=== PATIENT | male | born 1985 | race Caucasian/White ===

== ENCOUNTER 2016-10-05 03:19 | Emergency (ER) | payer OTHER ==
[~2016-10-05] VITALS: Ht 180.3 cm; Wt 119.2 kg
[~2016-10-05 03:19] MED LIST: ACET325T96 PO; AMLO-114 PO; DIVA250T PO; DXY100 PO; LABE1TAB28 PO; OXYC1TAB3 PO
[2016-10-05 03:23] VITALS: TEMP 37.1; Ht 180.3 cm; Wt 119.2 kg
[2016-10-05 04:31] LABS: BASO % 0.3 %; BASO ABS # 0.02 K/uL (0-0.2); COMPLETE YES; EOS % 1.9 %; IG% 0.2 %; LYMPH % 40.2 %; LYMPH ABS # 2.54 K/uL (1.2-3.4); MEAN CORPUSCULAR HEMOGLOBIN 29.2 pg (25-34); MEAN PLATELET VOLUME 10.2 fL (7.4-10.4); MONO % 8.1 %; NEUT % 49.3 %; PLATELET COUNT 234 K/uL (130-400); RED BLOOD COUNT 4.65 M/uL (4.7-6.1); WHITE BLOOD COUNT 6.32 K/uL (4.8-10.8)
[2016-10-05 04:49] LABS: ALT/SGPT 37 U/L (12-78); AST/SGOT 24 U/L (15-37); BLOOD UREA NITROGEN 17 mg/dl (7-18); BUN/CREATININE RATIO 13.3 (10-20); CALCIUM 8.3 mg/dl (8.5-10.1); CARBON DIOXIDE 29 mmol/L (21-32); CHLORIDE 108 mmol/L (98-107); GLUCOSE 103 mg/dl (70-99); POTASSIUM 3.9 mmol/L (3.5-5.1); SODIUM 143 mmol/L (136-145)
[2016-10-05 04:51] LABS: ACETAMINOPHEN < 2 ug/ml (10-30)
[2016-10-05 05:00] LABS: ALB/GLOB RATIO 1.1 (0.9-2); ALKALINE PHOSPHATASE 68 U/L (45-117)
--- NOTE | 2016-10-05 07:57 | EMERGENCY ROOM VISIT NOTE ---
History Report prepared by Belle: Helen Gómez Under the Supervision of: Dr. Ashutosh Taylor M.D. First contact with patient: 03:30 Chief Complaint: MENTAL HEALTH EVALUATION Stated Complaint: REQUEST MH EVAL History of Present Illness The patient is a 31 year old male who presents to the Emergency Room for a mental health evaluation. The patient has a history of 6 suicide attempts by overdose. Recently, he began feeling stressed out, so his father called [facility] this morning so that the patient could be evaluated. The patient admits that he gets increasingly stressed out about clashes with his father. [facility] was unable to assess the patient at the time so his father called police. Police brought the patient to the hospital. The patient states that he gets chest pain a few times a day when he is very anxious. Currently, he is not suicidal or homicidal. He has been admitted for inpatient psychiatric treatment in the past, most recently this past March following a suicide attempt by drinking antifreeze. The patient states that his most recent suicide attempt was this past June. He was seen in the emergency room for vomiting and back pain afterwards but did not tell anyone that he had attempted suicide. He has not missed any of his prescribed medications recently. The patient follows up with [facility], most recently about 2 weeks ago. Pt denies LOC, headache, fevers, chills, diaphoresis, visual changes, neck pain, breathing difficulties, nausea, vomiting, abdominal pain, back pain, melena, hematochezia, urinary symptoms, numbness, weakness, lymphadenopathy, rash, or other complaints. 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 A total of ten systems were reviewed and were otherwise negative. Past Medical & Surgical Medical Problems: (1) Depression (2) Dilated aortic root (3) History of suicide attempt Family History Diabetes mellitus Kidney stones Social History Smoking Status: Current Some Day Smoker Alcohol Use: heavy Drug Use: none Housing Status: lives with family Current/Historical Medications Scheduled Amlodipine (Norvasc), 10 MG PO DAILY Labetalol (Normodyne), 2 TABS PO TID Scheduled PRN Acetaminophen Tab (Tylenol), 650 MG PO Q4 PRN for Pain Divalproex Sodium (Depakote Er), 750 MG PO BID PRN for bid Oxycodone Ir (Roxicodone Ir), 5 MG PO Q4H PRN for Severe Pain Allergies Coded Allergies: No Known Allergies (Unverified , 10/05/16) Physical Exam Vital Signs Date Time Temp Pulse Resp B/P Pulse Ox O2 Delivery O2 Flow Rate FiO2 10/05/16 06:45 84 18 148/93 97 Room Air 10/05/16 05:47 104 18 137/102 94 Room Air 10/05/16 03:23 37.1 106 16 163/98 95 Room Air Physical Exam GENERAL: Awake, alert, well appearing, no distress HENT: Normocephalic, atraumatic. TM's normal. Oropharynx unremarkable. EYES: PERRL. EOMI. Normal conjunctiva. Sclera non-icteric. NECK: Supple. No nuchal rigidity. FROM. No JVD or bruit. RESPIRATORY: CTA CARDIAC: RRR. No murmur. ABDOMEN: Soft, non distended. No tenderness to palpation. No rebound or guarding. No masses. MUSCULOSKELETAL: Unremarkable. No edema. No discoloration. Gross motor strength symmetric. NEURO: Cranial nerves 2-12 grossly intact. Normal sensorium. No sensory or motor deficits noted. Speech normal. No pronator drift. SKIN: No rash or jaundice noted. LYMPH: No adenopathy. PSYCH: Depressed mood. Flat affect. No suicidal ideation. No homicidal ideation. Medical Decision & Procedures Laboratory Results 10/05/16 04:19 Red Blood Count 4.65, Mean Corpuscular Volume 86.0, Mean Corpuscular Hemoglobin 29.2, Mean Corpuscular Hemoglobin Concent 34.0, Mean Platelet Volume 10.2, Neutrophils (%) (Auto) 49.3, Lymphocytes (%) (Auto) 40.2, Monocytes (%) (Auto) 8.1, Eosinophils (%) (Auto) 1.9, Basophils (%) (Auto) 0.3, Neutrophils # (Auto) 3.12, Lymphocytes # (Auto) 2.54, Monocytes # (Auto) 0.51, Eosinophils # (Auto) 0.12, Basophils # (Auto) 0.02 10/05/16 04:19 Test 10/05/16 04:19 White Blood Count 6.32 K/uL (4.8-10.8) Red Blood Count 4.65 M/uL (4.7-6.1) Hemoglobin 13.6 g/dL (14.0-18.0) Hematocrit 40.0 % (42-52) Mean Corpuscular Volume 86.0 fL (80-100) Mean Corpuscular Hemoglobin 29.2 pg (25-34) Mean Corpuscular Hemoglobin Concent 34.0 g/dl (32-36) Platelet Count 234 K/uL (130-400) Mean Platelet Volume 10.2 fL (7.4-10.4) Neutrophils (%) (Auto) 49.3 % Lymphocytes (%) (Auto) 40.2 % Monocytes (%) (Auto) 8.1 % Eosinophils (%) (Auto) 1.9 % Basophils (%) (Auto) 0.3 % Neutrophils # (Auto) 3.12 K/uL (1.4-6.5) Lymphocytes # (Auto) 2.54 K/uL (1.2-3.4) Monocytes # (Auto) 0.51 K/uL (0.11-0.59) Eosinophils # (Auto) 0.12 K/uL (0-0.5) Basophils # (Auto) 0.02 K/uL (0-0.2) RDW Standard Deviation 43.9 fL (36.4-46.3) RDW Coefficient of Variation 14.1 % (11.5-14.5) Immature Granulocyte % (Auto) 0.2 % Immature Granulocyte # (Auto) 0.01 K/uL (0.00-0.02) Anion Gap 6.0 mmol/L (3-11) Est Creatinine Clear Calc Drug Dose 108.1 ml/min Estimated GFR () 84.3 Estimated GFR (Non- 72.7 BUN/Creatinine Ratio 13.3 (10-20) Calcium Level 8.3 mg/dl (8.5-10.1) Total Bilirubin 0.2 mg/dl (0.2-1) Direct Bilirubin < 0.1 mg/dl (0-0.2) Aspartate Amino Transf (AST/SGOT) 24 U/L (15-37) Alanine Aminotransferase (ALT/SGPT) 37 U/L (12-78) Alkaline Phosphatase 68 U/L (45-117) Troponin I < 0.015 ng/ml (0-0.045) Total Protein 6.9 gm/dl (6.4-8.2) Albumin 3.6 gm/dl (3.4-5.0) Globulin 3.3 gm/dl (2.5-4.0) Albumin/Globulin Ratio 1.1 (0.9-2) Thyroid Stimulating Hormone (TSH) 2.870 uIu/ml (0.300-4.500) Salicylates Level 1.7 mg/dl (2.8-20) Acetaminophen Level < 2 ug/ml (10-30) Ethyl Alcohol mg/dL < 3.0 mg/dl (0-3) Laboratory results reviewed by me ECG Indication: chest pain Rate (beats per minute): 88 Rhythm: normal sinus Findings: no acute ischemic change, left axis deviation, no ectopy, other (LVH) ED Course 0404: The patient was evaluated in room A6. A complete history and physical exam was performed. 0506: [facility] is coming to see the patient. 0700: I reassessed the patient and the patient agreed to voluntarily seeking psychiatric treatment. 0730: The patient was signed out to Dr. Sun at the change of shift pending bed search. Medical Decision Prior records/ancillary studies reviewed. Triage Nursing notes reviewed and agree them. Additional history obtained from the family. The patient's history was concerning for possible psychiatric disturbance. Differential diagnosis: Etiologies such as mood disorder, infection, hypoglycemia, electrolyte abnormalities, cardiac sources, intracerebral event, toxicologic, neurologic, as well as others were entertained. Physical examination: The physical examination was performed as above and was completely benign. No emergent medical pathologies were noted. ER treatment provided: No medication given. On reassessment the patient felt better. Diagnostic interpretation by me: The electrocardiogram was negative for pathologic change. The labs revealed an unremarkable CBC, chemistry panel, Tylenol, salicylate, alcohol levels. Renal function normal. Troponin negative. Imaging studies: Deferred Consultation: A consultation was placed with mental health. The patient was evaluated by mental health in the emergency department and they felt admission was warranted. The [facility] boiler tenders supervisor was generating a warrant based upon the father' s concern for the patient's safety. I discussed the issues with the patient. He does have depression. He has multiple issues with suicide attempts in the past. Options for 201 and 302 admissions were discussed. The patient opted for voluntary treatment. The patient was cooperative with me during his 4 hours in the emergency department. I did discuss this with the [facility] patient registration representative. The patient's disposition is pending at this time. A bed search is underway. The patient was given breakfast. He was signed out to Dr. Sun at the change of shift. The chart was completed utilizing [employer] Speech voice recognition software. Grammatical errors, random word insertions, pronoun errors, and incomplete sentences are an occasional consequence of this system due to software limitations, ambient noise, and hardware issues. Any formal questions or concerns about the content, text, or information contained within the body of this dictation should be directly addressed to the physician for clarification. Impression Primary Impression: Mood disorder Scribe Attestation The scribe's documentation has been prepared under my direction and personally reviewed by me in its entirety. I confirm that the note above accurately reflects all work, treatment, procedures, and medical decision making performed by me. Departure Information Dispostion Still a Patient (signed out to Dr. Sun pending bed search) Referrals Jimmy Rodríguez M.D. (MEDICAL) (PCP) Patient Instructions My [facility]
[2016-10-05] MEDS ORDERED: ESCI1TAB6 PO (09:07)
[2016-10-05] MEDS ORDERED: MIRT30TA2 PO (09:07)
[2016-10-05] MEDS ORDERED: AMLODIPINE BESYLATE 5 MG TAB PO STA (09:23)
[2016-10-05] MEDS ORDERED: ESCITALOPRAM OXALATE 10 MG TAB PO STA (09:23)
[2016-10-05] MEDS ORDERED: DIVALPROEX 500 MG EXTENDED RELEASE TAB PO STA (09:23)
[2016-10-05] MEDS ORDERED: LABETALOL HCL 200 MG TAB PO STA (09:23)
[2016-10-05 09:50] VITALS: O2SAT 95
[2016-10-05] MEDS ORDERED: DIVALPROEX PO ONE ×2 (10:00)
[2016-10-05 11:05] VITALS: BP 146/91; PULSE 87
--- NOTE | 2016-10-05 11:37 | EMERGENCY ROOM VISIT NOTE ---
ED Visit Note Patient signed out to me at change of shift. History and physical verified by me. Patient has been accepted to the [facility] and was transferred without incident. He was given his morning medications. Problem List Medical Problems: (1) Depression Status: Chronic (2) Dilated aortic root Status: Chronic (3) History of suicide attempt Permanent Comment: by ethylene glycol poisoning Status: Resolved Current/Historical Medications Scheduled Amlodipine (Norvasc), 10 MG PO DAILY Escitalopram Oxalate (Lexapro), 5 MG PO DAILY Labetalol (Normodyne), 2 TABS PO TID Mirtazapine Soltab (Remeron Soltab), 30 MG PO HS Scheduled PRN Acetaminophen Tab (Tylenol), 650 MG PO Q4 PRN for Pain Divalproex Sodium (Depakote Er), 750 MG PO BID PRN for bid Oxycodone Ir (Roxicodone Ir), 5 MG PO Q4H PRN for Severe Pain Allergies Coded Allergies: No Known Allergies (Unverified , 10/05/16) Vital Signs Date Time Temp Pulse Resp B/P Pulse Ox O2 Delivery O2 Flow Rate FiO2 10/05/16 11:05 87 20 146/91 10/05/16 09:50 86 18 147/101 95 Room Air 10/05/16 06:45 84 18 148/93 97 Room Air 10/05/16 05:47 104 18 137/102 94 Room Air 10/05/16 03:23 37.1 106 16 163/98 95 Room Air Laboratory Results 10/05/16 04:19 Red Blood Count 4.65, Mean Corpuscular Volume 86.0, Mean Corpuscular Hemoglobin 29.2, Mean Corpuscular Hemoglobin Concent 34.0, Mean Platelet Volume 10.2, Neutrophils (%) (Auto) 49.3, Lymphocytes (%) (Auto) 40.2, Monocytes (%) (Auto) 8.1, Eosinophils (%) (Auto) 1.9, Basophils (%) (Auto) 0.3, Neutrophils # (Auto) 3.12, Lymphocytes # (Auto) 2.54, Monocytes # (Auto) 0.51, Eosinophils # (Auto) 0.12, Basophils # (Auto) 0.02 10/05/16 04:19 Test 10/05/16 04:19 White Blood Count 6.32 K/uL (4.8-10.8) Red Blood Count 4.65 M/uL (4.7-6.1) Hemoglobin 13.6 g/dL (14.0-18.0) Hematocrit 40.0 % (42-52) Mean Corpuscular Volume 86.0 fL (80-100) Mean Corpuscular Hemoglobin 29.2 pg (25-34) Mean Corpuscular Hemoglobin Concent 34.0 g/dl (32-36) Platelet Count 234 K/uL (130-400) Mean Platelet Volume 10.2 fL (7.4-10.4) Neutrophils (%) (Auto) 49.3 % Lymphocytes (%) (Auto) 40.2 % Monocytes (%) (Auto) 8.1 % Eosinophils (%) (Auto) 1.9 % Basophils (%) (Auto) 0.3 % Neutrophils # (Auto) 3.12 K/uL (1.4-6.5) Lymphocytes # (Auto) 2.54 K/uL (1.2-3.4) Monocytes # (Auto) 0.51 K/uL (0.11-0.59) Eosinophils # (Auto) 0.12 K/uL (0-0.5) Basophils # (Auto) 0.02 K/uL (0-0.2) RDW Standard Deviation 43.9 fL (36.4-46.3) RDW Coefficient of Variation 14.1 % (11.5-14.5) Immature Granulocyte % (Auto) 0.2 % Immature Granulocyte # (Auto) 0.01 K/uL (0.00-0.02) Anion Gap 6.0 mmol/L (3-11) Est Creatinine Clear Calc Drug Dose 108.1 ml/min Estimated GFR () 84.3 Estimated GFR (Non- 72.7 BUN/Creatinine Ratio 13.3 (10-20) Calcium Level 8.3 mg/dl (8.5-10.1) Total Bilirubin 0.2 mg/dl (0.2-1) Direct Bilirubin < 0.1 mg/dl (0-0.2) Aspartate Amino Transf (AST/SGOT) 24 U/L (15-37) Alanine Aminotransferase (ALT/SGPT) 37 U/L (12-78) Alkaline Phosphatase 68 U/L (45-117) Troponin I < 0.015 ng/ml (0-0.045) Total Protein 6.9 gm/dl (6.4-8.2) Albumin 3.6 gm/dl (3.4-5.0) Globulin 3.3 gm/dl (2.5-4.0) Albumin/Globulin Ratio 1.1 (0.9-2) Thyroid Stimulating Hormone (TSH) 2.870 uIu/ml (0.300-4.500) Salicylates Level 1.7 mg/dl (2.8-20) Acetaminophen Level < 2 ug/ml (10-30) Ethyl Alcohol mg/dL < 3.0 mg/dl (0-3) Medications Administered Medications (Trade) Dose Ordered Sig/Tabatha Route Start Time Stop Time Status Last Admin Dose Admin Labetalol HCl (Normodyne Tab) 200 mg NOW STAT PO 10/05/16 09:23 10/05/16 09:26 DC 10/05/16 09:49 200 MG Amlodipine Besylate (Norvasc Tab) 10 mg NOW STAT PO 10/05/16 09:23 10/05/16 09:26 DC 10/05/16 09:48 10 MG Escitalopram Oxalate (Lexapro Tab) 5 mg NOW STAT PO 10/05/16 09:23 10/05/16 09:26 DC 10/05/16 09:49 5 MG Divalproex Sodium/ Divalproex Sodium (Depakote Extended Rel Tab/ Depakote Extended Rel Tab) 750 mg NOW ONCE PO 10/05/16 10:00 10/05/16 10:01 DC 10/05/16 09:52 750 MG Departure Information Impression Primary Impression: Mood disorder Dispostion Still a Patient Referrals Jimmy Rodríguez M.D. (MEDICAL) Patient Instructions My [facility]
== END 2016-10-05 11:07 ==
LOC: C.EDB 03:20 → C.EDA 11:07
DX: F39 Unspecified mood [affective] disorder (principal); I77.810 Thoracic aortic ectasia; F17.200 Nicotine dependence, unspecified, uncomplicated; F10.20 Alcohol dependence, uncomplicated; Z91.5 Personal history of self-harm; Z83.3 Family history of diabetes mellitus; Z84.1 Family history of disorders of kidney and ureter

== ENCOUNTER → 2017-04-29 | Outpatient (CLI) | payer OTHER ==
[~2017-04-29] MED LIST changes: +AZIT250T PO; -DXY100 PO; +ESCI1TAB6 PO; +MIRT30TA2 PO
--- NOTE | 2017-04-29 13:21 | DIAGNOSTIC IMAGING REPORT ---
LUNG IMAGING VQ CLINICAL HISTORY: Chest pain COMPARISON: None TECHNIQUE: For the ventilation portion of this exam, 33 mCi of DTPA was inhaled at 12:30 PM. Immediately following inhalation, imaging of the chest was carried out in the anterior, posterior, left lateral, right lateral, LPO, RPO, BAHRAINI and LOVELL projections. For the perfusion portion of exam, 5.5 mCi of technetium 99m MAA was injected IV at 12:50 PM. Immediately following injection, imaging of the chest was carried out in the same projections. FINDINGS: Uniform activity characteristics throughout both hemithoraces. This uniformly as seen on ventilation as well as perfusion. There are no ventilation/perfusion mismatches. There is no significant central air trapping. IMPRESSION: Normal study The above report was generated using voice recognition software. It may contain grammatical, syntax or spelling errors. Electronically signed by: Juwan Lama M.D. 04/29/2017 1:20 PM Dictated Date/Time: 04/29/2017 1:06 PM
--- NOTE | 2017-04-29 13:29 | DIAGNOSTIC IMAGING REPORT ---
CHEST 2 VIEWS ROUTINE CLINICAL HISTORY: POST LUNG SCAN dyspnea COMPARISON STUDY: 04/05/2016 FINDINGS: The bones soft tissues and hemidiaphragms are normal. The cardiomediastinal silhouette is normal. The lungs are clear. The pulmonary vasculature is normal. IMPRESSION: Negative chest. The above report was generated using voice recognition software. It may contain grammatical, syntax or spelling errors. Electronically signed by: Juwan Lama M.D. 04/29/2017 1:28 PM Dictated Date/Time: 04/29/2017 1:28 PM
== END | disposition home or self-care (01) ==
LOC: C.NUCL 12:14
PROVIDERS: ATTEND Specialist
DX: I27.2 Other secondary pulmonary hypertension (principal)

== ENCOUNTER → 2017-05-02 | Outpatient (CLI) | payer OTHER ==
--- NOTE | 2017-05-03 06:38 | PAP/PSG TECHNICIAN REPORT ---
[facility] [employer] Polysomnogram Report Study name: None Report date: 05/03/2017 Study date: 05/02/2017 Referring Physician: Dr. Patten Name: RUTHIE MONTGOMERY Interpreting Physician: Alverto Luna D.O. 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 Sex: Male Age: 32 StudyType: PSG Weight: 254 lbs Height: 32 years, Height 5' 9" BMI: 37.51 Medications: VORVASC 10 MG, NORMODYNE 200 MG, DEPAKOTE 250 MG Patient History PATIENT HAS HISTORY OF CHEST PAIN AND ANEURYSM WELL HYPERTENSION. HE GENERALLY FEELS TIRED AND FATIGUE DURING THE DAY. HE IS HERE TODAY FOR AN EVALUATION FOR DEVIN. ESS = 6 RM 6 Parameters Monitored NPSG: E1-M2, E2-M1, Fp1-M2, Fp2-M1, F3-M2, F4-M2, F4-M1, C3-M2, C4-M2, C4-M1, O1-M2, O2-M2, O2-M1, T3-M2, T4-M1, P3-M2, P4-M1, CHIN1, CHIN2, HR, EKG, Legs, PFLOW, SNOR, FLOW, CFLOW, Tidal Volume, THOR, ABDO, SpO2, PLTH, CPRESS, ETCO2 Wave, ETCO2, pH Sleep Architecture Sleep Stages Time at Lights Off 10:10:09 PM STAGES Time (min.) TST (%) Time at Lights On 5:49:39 AM Wake 61.5 -- Total Recording Time (TRT) 460.00 min. N1 5.5 1 Total Sleep Period (TSP) 408.0 min. N2 239.5 60 Total Sleep Time (TST) 398.0min. N3 76.5 19 Awake Time 61.5 min. REM 76.5 19 Wake after Sleep Onset 10.0 min. Sleep Efficiency (SE) 87 % Sleep Onset Latency (MARK) 51.5 min. Number of Stage 1 Shifts None Awakenings 15 Stage Changes 65 Number of REM periods 5 REM 76.5 19 REM Latency 74.0 min. NREM 321.5 81 Body Position Analysis Supine Right Left Side Prone Vertical Total Sleep Time (min.) 301.8 54.2 99.5 153.74 0.0 0.0 Total Sleep Time (%) 61% 14% 25% 39 0% N/A% Total Sleep Time REM (min.) 59.5 0.0 17.0 None 0.0 0.0 Total Sleep Time NREM (min.) 184.8 54.2 82.5 None 0.0 0.0 Intermittent Wake (min.) 57.5 1.0 3.0 None 0.0 0.0 Total Sleep Period (%) 61% None None None None None Arousals Myoclonus (PLM) * Events Count Index Events Count Index Spontaneous 25 4 Events Awake (PLMW) 47 45.9 Respiratory 9 1.4 Events Asleep w/ Arousal (PLMA) 7 1.1 PLM 7 1 Events Asleep w/o Arousal (PLMS) 56 8.4 Snoring 5 1 Total Asleep 63 9.5 Total 46 7 Total 110 14 Respiratory Analysis * CA OA MA CH H RERA Total Count 2 0 1 0 47 3 50 Index 0.3 0.0 0.2 0 7.1 0 8.0 Mean Duration 18.6 0.0 13.1 0.00 15.7 14.6 15.7 Longest Duration 25.2 0.0 13.1 0.00 13.1 15.9 27.4 Respiratory Event Summary Total Supine ~Supine Right Left Prone REM NREM Apneas Count 3 2 1 0 1 N/A 1 2 Index 0.5 0 0 0.0 0.6 N/A 1 0 Hypopneas (4% Desat) Count 47 40 7 4 3 N/A 3 44 Index 7.1 9.8 3 4.4 1.8 N/A 2.4 8.2 Apneas & All Hypopneas Count 50 42 8 4 4 N/A 4 46 Index 7.5 10 3 4 2 N/A 3.1 8.6 Respiratory Events ([employer]+All Hyp+RERA) Count 50 45 8 4 4 N/A 4 46 Index 8.0 11 3 4.4 2.4 N/A 3.1 9.1 Respiratory Related Arousal Count 9 45 1 1 0 N/A 0 9 Index 1.4 2 0 1 0 N/A 0 2 Snoring Analysis Supine Right Left Prone REM NREM Total Snore duration 4.0 min Snores count 68 3 5 N/A 16 60 76 Snore mean duration 3.1 Sec Snores index 17 3 3 N/A 12.5 11.2 11.5 TST with snoring (%) 1.0% SpO2 Analysis Total REM NREM Awake <50% 0.0 min. 0.0 min. 0.0 min. 0.0 min. 51 - 60% 0.0 min. 0.0 min. 0.0 min. 0.0 min. 61 - 70% 0.0 min. 0.0 min. 0.0 min. 0.0 min. 71 - 80% 0.0 min. 0.0 min. 0.0 min. 0.0 min. 81 - 90% 136.7 min. 19.6 min. 115.4 min. 1.6 min. 91 - 100% 320.7 min. 56.8 min. 205.3 min. 58.7 min. Average 91 91 91 93 Minimum SpO2 84 88 84 86 Desaturation Event Index 7.1 2.4 8.8 3.9 # Desat. Events below 89% 20 1 18 1 Time(%) with Saturation below 89% 5.8 0.1 5.6 0.1 Time(min.) with Saturation below 89% 26.5 0.4 25.8 0.3 Heart Rate Analysis End Tidal CO2 Analysis Min (bpm) Max (bpm) Average (bpm) TSP (mins) % of TSP Awake 41 127 65 Above 55 mmHg 0.0 0.0 NREM 39 127 57 50-55 mmHg 0.8 0.2 REM 44 75 59 45-50 mmHg 123.3 31.0 Overall 39 127 58 40-45 mmHg 239.0 60.0 35-40 mmHg 19.6 4.9 30-35 mmHg 4.7 1.2 Average ETCO2 0.1 Supplemental O2 Values Minimum O2 level: None Value Start Time End Time [employer] Comments Mr. Montgomery slept in the right, left, supine and prone positions. PAC's noted. Leg movements noted. No bruxism noted. Snoring was noted and scored as a 2 on a scale of 1 through 5. (0=no snoring, 5=snoring loud enough to be heard through a closed door or down the [address] way) Mr. Montgomery awoke to use the restroom 0 times during the night. Mr. Montgomery stated I slept as well as I do when I am in my own bed. The final report will be interpreted and signed by a sleep physician. The completed physician report will then be placed in the patient medical record. Therapy (cm H2O) 0 TIB (min.) 459.5 TST (min.) 398.0 Sleep Onset (min.) 51.5 REM Onset From Sleep (min.) 74.0 Sleep Efficiency % 87 Wakefulness (%) 13 Wakefulness (min.) 61.5 NREM 1 (%) 1 NREM 1 (min.) 5.5 NREM 2 (%) 60 NREM 2 (min.) 239.5 NREM 3 (%) 19 NREM 3 (min.) 76.5 REM (%) 19 REM (min.) 76.5 # Arousals 46 Arousal Index 7 # Snore 76 Snore Index 11.5 AHI 7.5 AHI Supine 10 AHI Non-Supine 3 NREM AHI 8.6 REM AHI 3.1 RDI 8.0 # Obstructive Apnea 0 # Central Apnea 2 # Mixed Apnea 1 # Hypopneas 47 RERAs 3 Total Respiratory Events 54 Time Below SpO2 89% (min.) 26.2 Mean NREM SpO2 (%) 91 Mean REM SpO2 (%) 91 Mean Sleep SpO2 (%) 91 Min NREM SpO2 (%) 84 Min REM SpO2 (%) 88 Position Supine (min.) 301.8 Position Non-supine (min.) 153.7 LM Index Sleep 9.5 LM Index NREM 9.5 LM Index REM 9.4 Mean Heart Rate (bpm) 58 Min Heart Rate (bpm) 39
--- NOTE | 2017-05-08 08:07 | Sleep Study ---
Sleep Study Report Date of Service: 05/02/2017 Sleep Study Report Clinical data: The patient is a 32-year-old male who was referred for a sleep study by Dr. Patten. The patient has a history of fatigue and tiredness. The history is that he has pulmonary hypertension. His Shirley Sleepiness Scale score was 6. This was an in-lab overnight polysomnography. Sleep architecture: The total sleep period was 408.0 minutes. The total sleep time was 398.0 minutes. Sleep efficiency was minimally decreased to 87 percent. The sleep onset latency was prolonged to 51.5 minutes. Wake after sleep onset however was only 10.0 minutes. The REM latency was normal at 74 minutes. Sleep consisted of stage N1 1 percent, stage N2 60 percent, stage N3 19 percent, stage REM 19 percent. Arousal data: The patient had a total of 46 arousals including 25 spontaneous arousals, 9 respiratory arousals, 7 PLM arousals, and 5 snoring arousals. The arousal index was 7. PLM data: Patient had a total of 63 periodic limb movements of sleep for a PLM index of 9.5. There were 7 arousals associated with limb movements for a PLM arousal index of 1.1. EKG: The underlying cardiac rhythm was normal sinus. The cardiac rates ranged from 39 to 75 beats per minute. The average heart rate was 58. Respiratory data: The patient had a total of 50 respiratory events including 2 central apneas, 1 mixed apnea, and 47 hypopneas. Hypopneas were scored according to the 4 percent desaturation rule. The longest apnea was 25.2 seconds. The mean duration of the hypopneas was 15.7 seconds. The apnea-hypopnea index was 7.5 which would be mildly elevated. This would reflect mild sleep apnea. Oximetry data: The average saturation for the night was 91 percent. The minimum saturation was 84 percent. There was a total of 26.5 minutes with saturations less than 89 percent. Psych Tech comments: The patient slept on the right, left, supine, and prone positions. Leg movements were noted. No bruxism noted. Snoring was noted and scored as a 2 on a scale of 1 through 5. Impressions: 1. Obstructive sleep apnea-mild Comments: The patient has mild sleep apnea. His sleep efficiency was mildly reduced. His sleep architecture was fairly normal. The patient spent the majority of the night in the supine position. There were transient episodes of hypoxia. This may be more significant than usual based upon the patient's history of pulmonary hypertension. In a similar fashion, he has mild sleep apnea but it may be more significant for him in light of the history of pulmonary hypertension. Recommendations: 1. Strong consideration is given to treatment with nasal CPAP therapy. This could be accomplished by a referral [facility] to [facility] for a CPAP titration study. Alternatively he could be a candidate for treatment with auto CPAP. 2. It is suggested that if possible the patient avoid sleeping in the supine position. Typically there are less respiratory events on the side or prone compared with supine. 3. Weight loss is advised in light of the elevation of body mass index of 37.51. 4. The patient should be advised the appropriate principles of sleep hygiene including having a regular sleep-wake schedule and allowing sufficient sleep time of approximately 7.5-8 hours of sleep per night. Copies To 1: Nuno Patten D.O.; Alverto Luna,
== END | disposition home or self-care (01) ==
LOC: C.NEUR 21:00
PROVIDERS: ATTEND Specialist
DX: I27.2 Other secondary pulmonary hypertension (principal); G47.33 Obstructive sleep apnea (adult) (pediatric)

== ENCOUNTER 2017-05-14 22:07 | Emergency (ER) | payer OTHER ==
[~2017-05-14] VITALS: Ht 180.3 cm; Wt 111.8 kg
[~2017-05-14 22:07] MED LIST changes: -AZIT250T PO
[2017-05-14 22:18] VITALS: TEMP 36.6; Ht 180.3 cm; Wt 111.8 kg
[2017-05-14 22:36] VITALS: O2SAT 97
[2017-05-14] MEDS ORDERED: SODIUM CHLORIDE 0.9% 1000ML 1,000 ML IV STA (22:51)
[2017-05-14 23:08] LABS: BASO % 0.3 %; BASO ABS # 0.02 K/uL (0-0.2); COMPLETE YES; EOS % 0.9 %; HEMATOCRIT 48.4 % (42-52); IG% 0.1 %; LYMPH % 41.4 %; LYMPH ABS # 3.09 K/uL (1.2-3.4); MEAN CELL VOLUME 83.7 fL (80-100); MEAN CORPUSCULAR HEMOGLOBIN 27.5 pg (25-34); MEAN CORPUSCULAR HGB CONC 32.9 g/dl (32-36); MEAN PLATELET VOLUME 10.5 fL (7.4-10.4); MONO % 10.3 %; PLATELET COUNT 250 K/uL (130-400); RED BLOOD COUNT 5.78 M/uL (4.7-6.1); WHITE BLOOD COUNT 7.46 K/uL (4.8-10.8)
[2017-05-14 23:25] LABS: CHLORIDE 101 mmol/L (98-107); POTASSIUM 3.7 mmol/L (3.5-5.1); SODIUM 136 mmol/L (136-145)
[2017-05-14 23:31] LABS: ALT/SGPT 25 U/L (12-78); BLOOD UREA NITROGEN 25 mg/dl (7-18); BUN/CREATININE RATIO 16.9 (10-20); CALCIUM 9.3 mg/dl (8.5-10.1); CARBON DIOXIDE 25 mmol/L (21-32); GLUCOSE 103 mg/dl (70-99)
[2017-05-14 23:36] LABS: ALKALINE PHOSPHATASE 82 U/L (45-117); AST/SGOT 26 U/L (15-37)
[2017-05-15] MEDS ORDERED: ALBUTEROL HFA 8 GM INHALER INH ONE (01:00)
[2017-05-15] MEDS ORDERED: AZIT250T PO (01:00)
--- NOTE | 2017-05-15 01:01 | EMERGENCY ROOM VISIT NOTE ---
History Report prepared by Belle: Naz Ambrocio Under the Supervision of: Dr. Azael Post M.D. First contact with patient: 22:41 Chief Complaint: CHEST PAIN Stated Complaint: CHEST PAIN, DIZZY Nursing Triage Summary: pt states "I feel like I am going to pass out. I have chest pain every day but today I have a burning/hot feeling. I also have a sharp stabbing pain that comes and goes." Hx pulmonary HTN and aortic aneursym. History of Present Illness The patient is a 32 year old male who presents to the Emergency Room with complaints of intermittent chest pain for the past couple of weeks. It lasts for a couple seconds at a time. He has tingling in his hands and warmth on his face with the chest pain. He also feels SOB and like he might pass out. He feels panicked and cold during these episodes. His symptoms do not occur with activity or lying flat. Last week, he had an episode of stabbing chest pain which was different from his normal episodes of chest pain. He was lying in bed when it occurred. His heart was beating fast. This episode resolved on its own after a couple minutes. He feels like he has been more forgetful and confused recently. He reports cough. He denies any back pain, LOC, abdominal pain, fever , or leg swelling. He denies any recent travel or illness. He denies any depression, SI, or HI. He has a history of pulmonary hypertension, ascending aortic aneurysm, and PRES. He had a cardiac arrest before after drug overdose. He admits to marijuana use daily. He is not concerned that anything is mixed in with his marijuana. He denies any synthetic marijuana use. He denies any other drug use. He smokes 1 pack a week. He admits to alcohol use. Source of History: patient Onset: couple weeks Position: chest Quality: stabbing Timing: intermittent Associated Symptoms: + cough, + SOB, No LOC, No fevers, No abdominal pain, No back pain Note: Pt reports tingling, heart beating fast, confusion. Pt denies leg swelling, SI, HI, depression. Review of Systems See HPI for pertinent positives and negatives. A total of ten systems were reviewed and were otherwise negative. Past Medical & Surgical Medical Problems: (1) Depression (2) Dilated aortic root (3) History of suicide attempt Family History Diabetes mellitus Kidney stones Social History Smoking Status: Current Every Day Smoker Alcohol Use: heavy Drug Use: none Housing Status: lives with family Current/Historical Medications Scheduled Amlodipine (Norvasc), 10 MG PO DAILY Azithromycin (Zithromax), 250 MG PO DAILY Escitalopram Oxalate (Lexapro), 5 MG PO DAILY Labetalol (Normodyne), 2 TABS PO TID Scheduled PRN Divalproex Sodium (Depakote Er), 750 MG PO BID PRN for bid Allergies Coded Allergies: No Known Allergies (Unverified , 05/14/17) Physical Exam Vital Signs Date Time Temp Pulse Resp B/P (MAP) Pulse Ox O2 Delivery O2 Flow Rate FiO2 05/15/17 01:18 84 18 127/84 100 05/14/17 22:36 97 Room Air 05/14/17 22:36 97 Room Air 05/14/17 22:29 79 05/14/17 22:18 36.6 108 22 132/97 100 Room Air Physical Exam GENERAL: Awake, alert, anxious-appearing, in no distress HENT: Normocephalic, atraumatic. Dry mucous membranes. EYES: Injected sclera. NECK: Supple. No nuchal rigidity. FROM. No JVD. RESPIRATORY: Clear to auscultation. CARDIAC: Regular rate, normal rhythm. Extremities warm and well perfused. Pulses equal. ABDOMEN: Soft, non-distended. No tenderness to palpation. No rebound or guarding. No masses. RECTAL: Deferred. MUSCULOSKELETAL: Chest examination reveals no tenderness. The back is symmetrical on inspection without obvious abnormality. There is no CVA tenderness to palpation. No joint edema. EXTREMITIES: Calves are equal size bilaterally and non-tender. No edema. No discoloration. Pulses equal throughout. NEURO: Slightly slurred speech and some confabulation. SKIN: No rash or jaundice noted. Medical Decision & Procedures ER Provider Diagnostic Interpretation: X-ray: Per my interpretation, radiologist review. Chest X-ray: clear lungs, normal mediastinum. Laboratory Results 05/14/17 22:30 Red Blood Count 5.78, Mean Corpuscular Volume 83.7, Mean Corpuscular Hemoglobin 27.5, Mean Corpuscular Hemoglobin Concent 32.9, Mean Platelet Volume 10.5, Neutrophils (%) (Auto) 47.0, Lymphocytes (%) (Auto) 41.4, Monocytes (%) (Auto) 10.3, Eosinophils (%) (Auto) 0.9, Basophils (%) (Auto) 0.3, Neutrophils # (Auto ) 3.50, Lymphocytes # (Auto) 3.09, Monocytes # (Auto) 0.77, Eosinophils # (Auto ) 0.07, Basophils # (Auto) 0.02 05/14/17 22:30 Test 05/14/17 22:30 05/14/17 23:24 White Blood Count 7.46 K/uL (4.8-10.8) Red Blood Count 5.78 M/uL (4.7-6.1) Hemoglobin 15.9 g/dL (14.0-18.0) Hematocrit 48.4 % (42-52) Mean Corpuscular Volume 83.7 fL (80-100) Mean Corpuscular Hemoglobin 27.5 pg (25-34) Mean Corpuscular Hemoglobin Concent 32.9 g/dl (32-36) Platelet Count 250 K/uL (130-400) Mean Platelet Volume 10.5 fL (7.4-10.4) Neutrophils (%) (Auto) 47.0 % Lymphocytes (%) (Auto) 41.4 % Monocytes (%) (Auto) 10.3 % Eosinophils (%) (Auto) 0.9 % Basophils (%) (Auto) 0.3 % Neutrophils # (Auto) 3.50 K/uL (1.4-6.5) Lymphocytes # (Auto) 3.09 K/uL (1.2-3.4) Monocytes # (Auto) 0.77 K/uL (0.11-0.59) Eosinophils # (Auto) 0.07 K/uL (0-0.5) Basophils # (Auto) 0.02 K/uL (0-0.2) RDW Standard Deviation 40.5 fL (36.4-46.3) RDW Coefficient of Variation 13.4 % (11.5-14.5) Immature Granulocyte % (Auto) 0.1 % Immature Granulocyte # (Auto) 0.01 K/uL (0.00-0.02) Anion Gap 10.0 mmol/L (3-11) Est Creatinine Clear Calc Drug Dose 89.9 ml/min Estimated GFR () 70.4 Estimated GFR (Non- 60.7 BUN/Creatinine Ratio 16.9 (10-20) Calcium Level 9.3 mg/dl (8.5-10.1) Total Bilirubin 0.5 mg/dl (0.2-1) Direct Bilirubin 0.1 mg/dl (0-0.2) Aspartate Amino Transf (AST/SGOT) 26 U/L (15-37) Alanine Aminotransferase (ALT/SGPT) 25 U/L (12-78) Alkaline Phosphatase 82 U/L (45-117) Troponin I < 0.015 ng/ml (0-0.045) Pro-B-Type Natriuretic Peptide 14 pg/ml (0-450) Total Protein 7.8 gm/dl (6.4-8.2) Albumin 4.0 gm/dl (3.4-5.0) Lipase 136 U/L (73-393) Valproic Acid (Depakene) Level < 3 mcg/ml (50-100) Ammonia 23.0 umol/L (11-32) Ethyl Alcohol mg/dL < 3.0 mg/dl (0-3) Laboratory results reviewed by me Medications Administered Medications (Trade) Dose Ordered Sig/Tabatha Route Start Time Stop Time Status Last Admin Dose Admin Sodium Chloride 1,000 ml @ 999 mls/hr Q1H1M STAT IV 05/14/17 22:51 05/14/17 23:51 DC 05/14/17 22:51 999 MLS/HR Albuterol (Ventolin Hfa Inhaler) 2 puffs NOW ONCE INH 05/15/17 01:00 05/15/17 01:01 DC 05/15/17 01:08 2 PUFFS Azithromycin (Zithromax Tab) 500 mg NOW ONCE PO 05/15/17 01:15 05/15/17 01:16 DC 05/15/17 01:08 500 MG ECG Indication: chest pain Rate (beats per minute): 81 Rhythm: normal sinus Findings: no acute ischemic change, left axis deviation Comparison ECG Date: 05-Oct-2016 Change: no significant change ED Course 2243: The patient was evaluated by the student at this time. We discussed findings, differentials, and treatment plan. 2251: NSS 1000 ml @ 999 mls/hr IV. 2258: The patient was evaluated in room A3. A complete history and physical exam was performed. 0045: I reevaluated the patient. He is feeling better. I discussed results and discharge instructions: he verbalized understanding and agreement. The patient is ready for discharge. 0100: Albuterol 2 puffs INH. 0115: Azithromycin 500 mg PO. Medical Decision I reviewed the patient's past medical history, medications, and the nursing notes as described above. Differential diagnosis: ACS, pneumonia, bronchitis, aortic dissection, arrhythmia, electrolyte abnormality, polysubstance abuse, dehydration. The patient is a 82-year-old gentleman with a past medical history of a ascending thoracic aneurysm and per patient was recently diagnosed with pulmonary hypertension with follow-up with pulmonology on Saturday presents emergency Department with complaints of intermittent chest pain in the setting of persistent cough per history of present illness. On arrival the patient is in no acute distress, afebrile with stable vital signs. Equal pulses, denies tearing CP or radiation to back thus worsening TAA or AD not likely. The patient does appear slightly drowsy with slurred speech however after drinking Scotch and smoking marijuana prior to arrival. EKG unremarkable.Troponin negative in the setting over a week of sx. Heart score 2, low risk. ACS not likely. Labs otherwise unremarkable including LFTs and ammonia given the patient is on Depakote. Chest x-ray with some bronchial thickening but otherwise unremarkable. Feeling improved after IV fluids. Speaking clearly and more alert. Patient's symptoms likely worsened by his smoking of cigarettes as well as marijuana. He was counseled on this. Otherwise patient's symptoms are most likely secondary to a bronchitis, is given an MDI and will treat with azithromycin. He has close follow-up arranged with pulmonology this Saturday. Findings and plan for follow-up d/w patient. Patient agreeable and d/c'd per discharge instructions. Medication Reconcilliation Current Medication List: was personally reviewed by me Blood Pressure Screening Patient's blood pressure: Elevated blood pressure Blood pressure disposition: Elevated BP felt to be situational Impression Primary Impression: Left sided chest pain Scribe Attestation The scribe's documentation has been prepared under my direction and personally reviewed by me in its entirety. I confirm that the note above accurately reflects all work, treatment, procedures, and medical decision making performed by me. Departure Information Dispostion Home / Self-Care Prescriptions Azithromycin (Zithromax) 250 Mg Tab 250 MG PO DAILY, #4 TAB Prov: Azael Post M.D. 05/15/17 Referrals Jimmy Rodríguez M.D. (MEDICAL) (PCP) Patient Instructions Chest Pain - 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 Continue with your plan to be evaluated by pulmonology. You likely have bronchitis, which will take time to resolve. Take Azithromycin antibiotic as prescribed. Otherwise, your exam, EKG, chest xray, and lab results did not show signs of an emergent condition at this time. Return to the emergency department for worsening symptoms as described in the accompanying instructions.
[2017-05-15] MEDS ORDERED: AZITHROMYCIN 250 MG TAB PO ONE (01:15)
[2017-05-15 01:18] VITALS: BP 127/84; PULSE 84; O2SAT 100
--- NOTE | 2017-05-15 07:25 | DIAGNOSTIC IMAGING REPORT ---
CHEST ONE VIEW PORTABLE HISTORY: Atypical CHEST PAIN COMPARISON: Chest 04/29/2017. FINDINGS: The lungs are clear. Cardiac silhouette is normal in size. No pleural effusions. No pneumothorax. IMPRESSION: No acute process. Electronically signed by: Mayito Bustos M.D. 05/15/2017 7:24 AM Dictated Date/Time: 05/15/2017 7:23 AM
== END 2017-05-15 01:19 | disposition home or self-care (01) ==
LOC: C.EDB 22:08 → C.EDA 05-15 01:19
DX: R07.9 Chest pain, unspecified (principal); F32.9 Major depressive disorder, single episode, unspecified; F17.200 Nicotine dependence, unspecified, uncomplicated; Z79.899 Other long term (current) drug therapy; Z83.3 Family history of diabetes mellitus; Z84.1 Family history of disorders of kidney and ureter

== ENCOUNTER 2017-07-05 14:18 | Emergency (ER) | payer OTHER ==
[~2017-07-05] VITALS: Ht 180.3 cm; Wt 107.1 kg
[~2017-07-05 14:18] MED LIST changes: -ACET325T96 PO; +AZIT250T PO; -MIRT30TA2 PO; -OXYC1TAB3 PO
[2017-07-05 14:24] VITALS: Ht 180.3 cm; Wt 107.1 kg
--- NOTE | 2017-07-05 15:44 | DIAGNOSTIC IMAGING REPORT ---
L KNEE 3 VIEWS CLINICAL HISTORY: Left knee pain COMPARISON: None. DISCUSSION: No fractures or dislocations are visualized. There is trace joint fluid present. No destructive lesions are visualized. IMPRESSION: 1. No fractures identified 2. Trace joint fluid 3. No erosive or destructive lesions identified Electronically signed by: Kevin Johnson M.D. 07/05/2017 3:42 PM Dictated Date/Time: 07/05/2017 3:42 PM
[2017-07-05] MEDS ORDERED: DICL75TA2 PO (16:06)
[2017-07-05 16:30] VITALS: BP 153/100; PULSE 75; TEMP 36.3; O2SAT 98
--- NOTE | 2017-07-05 23:48 | EMERGENCY ROOM VISIT NOTE ---
ED Visit Note First contact with patient: 15:12 CHIEF COMPLAINT: knee pain HISTORY OF PRESENT ILLNESS: This 32-year-old male patient presents to the emergency department with complaints of slowly worsening left knee pain for the past month. He does not recall a distinct injury or trauma. The patient denies any other injuries besides their knee. The patient is with some swelling but no redness or bruising. There is pain with twisting and certain range of motion. They rate the pain as dull and 5/10. The patient states they are able to walk on it. No numbness or tingling. No previous injuries to this knee. No ankle, foot or hip pain. REVIEW OF SYSTEMS: A 6 system review of systems was completed with positives and pertinent negatives listed in the HPI. ALLERGIES: No known allergies MEDICATIONS: No chronic medication PMH: Otherwise healthy SOCIAL HISTORY: Lives locally PHYSICAL EXAM: Vital Signs: Reviewed Nurse's notes, vital signs stable. GENERAL : Male, no acute distress, but appears in pain, well-developed, well-nourished. MENTAL STATUS: Alert, oriented to person place and time, and cooperative. MUSCULOSKELETAL: The left knee is mildly swollen. There is no ecchymosis. There is no joint effusion present. The patient is tender inferior to the patella. There is no joint line tenderness. The patella does not subluxate. Range of motion is normal. Strength of the quads and hamstrings is 5/5. Lashae' s is negative. Radha's and Anterior Drawer tests are negative. There is no laxity with varus and valgus stressing. The foot and toes are warm and well- perfused. Dorsalis pedis pulse 2+. Sensation to pain and light touch is intact. Capillary refill less than 2 seconds. L KNEE 3 VIEWS CLINICAL HISTORY: Left knee pain COMPARISON: None. DISCUSSION: No fractures or dislocations are visualized. There is trace joint fluid present. No destructive lesions are visualized. IMPRESSION: 1. No fractures identified 2. Trace joint fluid 3. No erosive or destructive lesions identified EMERGENCY DEPARTMENT COURSE: Physical exam and history were performed. Nursing notes and EMR were reviewed. The patient has left knee pain that is slowly worsening over the past month. He does have some swelling on examination. X-ray was obtained and reviewed by myself and radiology as above. He does not appear to have a distinct fracture or destructive lesions. The patient will be started on a course of diclofenac. He will be placed in a knee immobilizer and given crutches. I did recommend the patient follow with orthopedics next week if his symptoms persist. He was certainly invited back to the ER with any new, worsening, or concerning symptoms. Problem List Medical Problems: (1) Depression Status: Chronic (2) Dilated aortic root Status: Chronic (3) History of suicide attempt Permanent Comment: by ethylene glycol poisoning Status: Resolved Current/Historical Medications Scheduled Amlodipine (Norvasc), 10 MG PO DAILY Diclofenac Sodium (Voltaren), 75 MG PO BID Divalproex Sodium (Depakote Er), 750 MG PO BID Allergies Coded Allergies: No Known Allergies (Unverified , 05/14/17) Vital Signs Date Time Temp Pulse Resp B/P (MAP) Pulse Ox O2 Delivery O2 Flow Rate FiO2 07/05/17 16:30 36.3 75 18 153/100 98 07/05/17 14:24 36.7 94 15 118/80 98 Room Air Departure Information Impression Primary Impression: Left knee pain Dispostion Home / Self-Care Condition FAIR Prescriptions Diclofenac Sodium (VOLTAREN) 75 Mg Tab 75 MG PO BID for 30 Days, #60 TAB Take with food Prov: Nuno Mendenhall PA-C 07/05/17 Referrals Immanuel Butler D.O. Forms HOME CARE DOCUMENTATION FORM, IMPORTANT VISIT INFORMATION Patient Instructions My [facility] Additional Instructions You were seen and evaluated today on an emergency basis only. This is not a substitute for, or an effort to provide, complete comprehensive medical care. It is not possible to recognize and treat all injuries or illnesses in a single emergency department visit. For this reason it is recommended that you followup with [facility] orthopedics, Dr. Butler's office, with any ongoing or persistent symptoms next week. Take diclofenac 75 mg twice daily for the next 1-2 weeks. Take this medication with food as it can cause an upset stomach. Wear your knee immobilizer and use your crutches to help with walking. Use these for the next 4-5 days. If you still have symptoms, please follow with Orthopedics. You are welcome to return to the emergency department anytime with new, worsening, or concerning symptoms.
== END 2017-07-05 16:33 | disposition home or self-care (01) ==
LOC: C.EDB 14:19 → C.EDD 16:33
DX: M25.562 Pain in left knee (principal); F32.9 Major depressive disorder, single episode, unspecified; Z79.899 Other long term (current) drug therapy

== ENCOUNTER 2017-10-04 16:51 | Inpatient (IN) | payer OTHER ==
[~2017-10-04] VITALS: Ht 175.3 cm; Wt 98.6 kg
[~2017-10-04 16:51] MED LIST changes: +ATVI IV; -AZIT250T PO; +DPKSR250 PO; -ESCI1TAB6 PO; +GABAPENTIN PO; +HLD5 PO; +HLDI IM; -LABE1TAB28 PO; +LBT200 PO
[2017-10-04] MEDS ORDERED: ACETAMINOPHEN 325 MG TAB PO PRN (17:15)
[2017-10-04] MEDS ORDERED: SODIUM CHLORIDE 0.65% NA SOLN 45 ML (OCEAN) PRN (17:15)
[2017-10-04] MEDS ORDERED: HALOPERIDOL 5 MG TAB PO PRN (17:15)
[2017-10-04] MEDS ORDERED: hydrOXYzine HCL 25 MG TAB PO PRN ×2 (17:15)
[2017-10-04] MEDS ORDERED: BISMUTH SUBSALICYLATE PER ML OMNICELL CHARGE PO PRN (17:15)
[2017-10-04] MEDS ORDERED: ALUMINUM/MAGNESIUM SUSP 30 ML UDC PO PRN (17:15)
[2017-10-04] MEDS ORDERED: LORAZEPAM 2 MG/ML 1 ML VIAL PO PRN (17:15)
[2017-10-04] MEDS ORDERED: HALOPERIDOL LACTATE 5 MG/ML 1 ML VIAL IM PRN (17:15)
[2017-10-04] MEDS ORDERED: MAGNESIUM HYDROXIDE SUSP 30 ML UDC PO PRN (17:15)
[2017-10-04 17:29] VITALS: BP 121/80; PULSE 88; TEMP 36.3; Ht 175.3 cm; Wt 98.6 kg
[2017-10-04 21:05] VITALS: BP 124/86; PULSE 98
[2017-10-04] MEDS: LABETALOL HCL 200 MG TAB PO SCH (22:04)
[2017-10-04] MEDS: DIVALPROEX 250 MG EXTENDED REL TAB PO SCH (22:04)
[2017-10-05 06:42] VITALS: BP_SYST 116; BP_SYST 120; BP_DIAS 73; BP_DIAS 84; PULSE 79; PULSE 85; TEMP 36.6
[2017-10-05] MEDS: LABETALOL HCL 200 MG TAB PO SCH ×3 (09:24→22:23)
[2017-10-05] MEDS: AMLODIPINE BESYLATE 5 MG TAB PO SCH (09:24)
[2017-10-05] MEDS: DIVALPROEX 250 MG EXTENDED REL TAB PO SCH ×3 (09:24→22:23)
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
[2017-10-05 13:33] VITALS: BP 138/88; PULSE 85
[2017-10-05 22:42] VITALS: BP 127/84; PULSE 84
[2017-10-06 06:39] VITALS: BP_SYST 109; BP_SYST 94; BP_DIAS 60; BP_DIAS 72; PULSE 76; PULSE 80; TEMP 36.5
[2017-10-06] MEDS: LABETALOL HCL 200 MG TAB PO SCH ×3 (08:52→22:10)
[2017-10-06] MEDS: DIVALPROEX 250 MG EXTENDED REL TAB PO SCH ×3 (08:52→22:10)
[2017-10-06] MEDS: AMLODIPINE BESYLATE 5 MG TAB PO SCH (08:53)
--- NOTE | 2017-10-06 09:56 | Psychiatric Progress Notes ---
Progress Note Date of Service Oct 06, 2017. Interval History 32-year-old man admitted initially to the medical floor following a use some overdose. He is now on our unit on a 302 involuntary commitment due to concerns it was an overdose. Chief Complaint "Fine.". Subjective Patient was seen & assessed interval progress reviewed with Treatment Team. The patient says that he is doing fine today. Nursing reports that he has been attending all groups, been social with peers, and has been in good behavioral control. The patient denies he is having any suicidal ideation. His father came to visit last evening and he is willing to have a family meeting with his father when he can be arranged with social work. He revealed to social work yesterday that his old therapist is not someone he wants to return to due to a previous social connection. He is willing to return to see a different therapist. His goal is still to get out of the hospital as soon as possible, believing that this was all a misunderstanding, that he doesn't need to be here. His appetite is good, and slept well through the night. Review of Systems Constitutional: No fever, No chills, No sweats, No weight loss, No weakness, No fatigue, No problem reported ENT: No hearing loss, No unusual epistaxis, No nasal symptoms, No sore throat, No tinnitus, No dental problems, No trouble swallowing, No problem reported Respiratory: No cough, No sputum, No wheezing, No shortness of breath, No dyspnea on exertion, No dyspnea at rest, No hemoptysis, No problem reported Cardiovascular: No chest pain, No orthopnea, No PND, No edema, No claudication , No palpitations, No problem reported Abdomen: No pain, No nausea, No vomiting, No diarrhea, No constipation, No GI bleeding, No problem reported Musculoskeletal: No joint pain, No muscle pain, No swelling, No calf pain, No problem reported Neurologic: No memory loss, No paralysis, No weakness, No numbness/tingling, No vertigo, No balance problems, No problem reported Psychiatric: No depression symptoms, No anhedonism, No anxiety, No insomnia, No substance abuse, No problem reported Integumentary: No rash, No itch, No new/changing skin lesions, No color change , No bleeding, No problem reported Sleep Information Total Hours of Sleep: 6.50 Meal Information Percent of Breakfast Consumed: 100 Percent of Lunch Consumed: 100 Percent of Dinner Consumed: 100 Mental Status Exam During interview pt is: alert and oriented, cooperative Appearance: appropriately dressed, disheveled Eye contact is: good Motor behavior is: steady gait & station, no abnormal motor movements Speech: normal in rate, rhythm & volume Affect: euthymic Mood is: other ("fine") Thought process: goal directed Thought content: reality based without delusions Suicidal thought are: denied Homicidal thoughts are: denied Hallucinations: denies auditory, denies visual Cognition: memory grossly intact, attention grossly intact, language grossly intact Intelligence estimated to be: average Insight: limited Judgement: limited Impression The patient has been in good behavioral control and continues to deny suicidal ideation. His goal is still to get out of the hospital as soon as possible and is willing to do what is asked of him in order to accomplish that goal. Therefore he is willing to have a meeting with his father which director social welfare will arrange at the earliest convenience. He maintains his contention that he was doing meth amphetamines for 5 days resulting in no sleep. Taking of Unisom was intended to put him to sleep, not to kill him. At this rate, we will have no grounds to keep him on a 303 and will discharge by the end of his 302. Plan (1) Depression 10/05 -Patient declines the offer any antidepressants at this time - Will need to reengage in therapy through [facility] - Patient is here on a 302. We will continue to gather information toward the need for further inpatient care - Will need to get supplemental from father, roommate, or someone else - Every 15 minute checks for safety - Encourage participation in group and individual counseling - Assist the patient to explore concepts of mindfulness -Family meeting if indicated 10/06 - Patient continues to decline medications for depression - Will need to schedule family meeting with father with whom he says he will live after discharge - Continue to gather information toward the need for further inpatient treatment (2) Methamphetamine abuse 10/05 - Recommend abstinence - Patient does not see that he needs any substance use treatment (3) HTN (hypertension) 10/05 - Continue antihypertensives - Monitor BP (4) Seizures 10/05 -Continue Depakote ER 750 mg 3 times a day - Last level was on - Patient had not taken his Depakote more than a year, and had not had a seizure. Will need to explore recommendations for continuing and tea seizure medicines Visit Code E&M Code: 27702 Inventory Assets Strengths: Support from father, has a place to live Needs: To abstain from abusable substances Risk Factors Assessment Male: Yes : No /single/: Yes Higher / Fall in social status: No Health problems: Yes Mental Health Diagnoses: Yes Substance use disorders: Yes Previous attempt: Yes Previous attempt;highly lethal: Yes Previous psychiatric stay: Yes Smoker: Yes Protective Factors Assessment : No Responsible for young children: No Stable relationships: No Supportive family: Yes Data Vital Signs Last 24 Hrs: Date Time Temp Pulse Resp B/P (MAP) Pulse Ox O2 Delivery O2 Flow Rate FiO2 10/06/17 06:39 36.5 76 16 94/60 80 109/72 10/05/17 22:42 84 18 127/84 10/05/17 13:33 85 138/88 Meds Administered Last 24 Hrs: Meds Administered (Past 24Hrs) Medications (Trade) Dose Ordered Sig/Tabatha Route Start Time Stop Time Status Last Admin Dose Admin Amlodipine Besylate (Norvasc Tab) 10 mg DAILY PO 10/05/17 09:00 11/04/17 08:59 10/06/17 08:53 10 MG Divalproex Sodium (Depakote Extended Rel Tab) 750 mg TID PO 10/04/17 22:00 11/03/17 21:59 10/06/17 08:52 750 MG Labetalol HCl (Normodyne Tab) 200 mg TID PO 10/04/17 22:00 11/03/17 21:59 10/06/17 08:52 200 MG
[2017-10-06 14:05] VITALS: BP 115/78; PULSE 94
[2017-10-06 21:45] VITALS: BP 123/77; PULSE 85
[2017-10-07 06:55] VITALS: BP_SYST 107; BP_SYST 114; BP_DIAS 69; BP_DIAS 78; PULSE 71; PULSE 74; TEMP 36.4
[2017-10-07] MEDS: LABETALOL HCL 200 MG TAB PO SCH ×2 (08:55→13:11)
[2017-10-07] MEDS: DIVALPROEX 250 MG EXTENDED REL TAB PO SCH ×2 (08:55→13:10)
[2017-10-07] MEDS: AMLODIPINE BESYLATE 5 MG TAB PO SCH (08:56)
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
--- NOTE | 2017-10-07 11:05 | Psych Management Progress Note ---
Psychiatry Miscellaneous Date of Service: Oct 07, 2017. Patient seen, MS assessed. Rates mood as stable. No further outbursts per staff in treatment team. I personally participated in the medical decision making surrounding the patient's discharge.
[2017-10-07 13:09] VITALS: BP 126/87; PULSE 102
== END 2017-10-07 13:10 | disposition home or self-care (01) | DRG 881 ==
LOC: C.MHU 16:51
PROVIDERS: ADMIT Psychiatry & Neurology Child & Adolescent Psychiatry; ATTEND Psychiatry & Neurology Child & Adolescent Psychiatry
DX: F32.9 Major depressive disorder, single episode, unspecified (principal); Z91.5 Personal history of self-harm; F15.10 Other stimulant abuse, uncomplicated; I10 Essential (primary) hypertension; R56.9 Unspecified convulsions; F17.200 Nicotine dependence, unspecified, uncomplicated; Z62.810 Personal history of physical and sexual abuse in childhood; Z62.811 Personal history of psychological abuse in childhood; Z79.899 Other long term (current) drug therapy; Z83.3 Family history of diabetes mellitus; Z84.1 Family history of disorders of kidney and ureter; Z81.8 Family history of other mental and behavioral disorders